=== PATIENT | female | born 1960 | race Caucasian/White ===

== ENCOUNTER 2016-11-18 21:38 | Emergency (ER) | payer MEDICARE ==
[~2016-11-18] VITALS: Ht 160 cm; Wt 97.1 kg
[~2016-11-18 21:38] MED LIST: ALBU8.5H6 INH; AMLO10TA4 PO; ATEN50TA PO; CALC500T50 PO; CHOL2000 PO; CYCL10TA2 PO; FERR325T72 PO; GLIP10TA13 PO; HYDR50TA6 PO; LEVO500T38 PO; LORA0.5T96 PO; MELO-156 PO; METF500T4 PO; NAPR500T8 PO; OMEG300C PO; PREG50CA PO; SERT100T PO; SERT100T8 PO
[2016-11-18 21:45] VITALS: BP 160/109
[2016-11-18] MEDS ORDERED: DICL75TA PO (23:04)
--- NOTE | 2016-11-18 23:05 | PHYS DOC ---
Past Medical History Past Medical History: Anxiety, Bronchitis, Diabetes-Type II, High Cholesterol, Hypertension Past Surgical History: Other Additional Past Surgical Histo: Shoulder Alcohol Use: None Drug Use: None Adult General Chief Complaint Chief Complaint: HAND PROBLEM HPI HPI Patient is a 56 year old female with a history of high cholesterol, hypertension, diabetes type 2, who presents today with mild left hand pain and swelling that began yesterday after she fell down. Review of Systems Review of Systems Constitutional: Denies fever or chills [] Eyes: Denies change in visual acuity, redness, or eye pain [] Musculoskeletal: Left hand pain and swelling Integument: Denies rash or skin lesions [] Neurologic: Denies headache, focal weakness or sensory changes [] Endocrine: Denies polyuria or polydipsia [] Allergies Allergies Allergies Coded Allergies Type Severity Reaction Last Updated Verified No Known Drug Allergies 08/12/14 No Physical Exam Physical Exam Constitutional: Well developed, well nourished, no acute distress, non-toxic appearance. [] HENT: Normocephalic, atraumatic, bilateral external ears normal, oropharynx moist, no oral exudates, nose normal. [] Skin: See extremity Back: No tenderness, no CVA tenderness. [] Extremities: Left hand with mild amount of soft tissue swelling on the knuckles of the index finger and middle finger. Tenderness on palpation of the left hand index finger and middle finger knuckles. Full range of motion to the left hand and fingers. Adequate medial radial and ulnar sensation to the left hand. +2 left radial pulse. Cap refill less than 2 seconds and left upper extremity. Sensation intact left upper extremity. Neurologic: Alert and oriented X 3, normal motor function, normal sensory function, no focal deficits noted. [] Psychologic: Affect normal, judgement normal, mood normal. [] Current Patient Data Vital Signs Vital Signs Date Time Temp Pulse Resp B/P Pulse Ox O2 Delivery O2 Flow Rate FiO2 11/18/16 21:45 97.5 95 18 96 Room Air 97.5 EKG EKG [] Radiology/Procedures Radiology/Procedures [] Course & Med Decision Making Course & Med Decision Making Pertinent Labs and Imaging studies reviewed. (See chart for details) Patient is in the ED with left hand pain after falling on it. Left hand x-rays interpreted by Dr. Gonzalez are negative for any acute findings. Patient was discharged with instructions to ice and elevate the extremity. Dave wrap applied to the left hand by the ED RN, neurovascular exam done by me is normal, cap refill less than 2 seconds. Follow-up with orthopedic doctor in a week. Discharged with diclofenac Dragon Disclaimer Dragon Disclaimer This electronic medical record was generated, in whole or in part, using a voice recognition dictation system. Departure Departure Impression: Primary Impression: Sprain of left hand Additional Impression: Fall from standing Disposition: 01 HOME, SELF-CARE Condition: STABLE Referrals: MEHRAN CALLAHAN NP (PCP) MARY PINEDA II, MD Follow-up with the orthopedic doctor provided in a week if pain continues Patient Instructions: Fall Prevention and Home Safety Additional Instructions: You were seen for left hand sprain after falling on it. Ice and elevate the extremity. Take the prescribed pain medicine as needed for pain. Keep the Dave wrap on as tolerated. Follow-up with orthopedic doctor in a week if pain continues. Scripts Diclofenac Sodium 75 Mg Tablet.dr1 Tab PO BID #20 TAB Ref 1 Prov:DANO DUNLAP APRN 11/18/16 Problem Qualifiers Primary Impression: Sprain of left hand Encounter type: initial encounter Qualified Code: S63.92XA - Sprain of unspecified part of left wrist and hand, initial encounter Additional Impression: Fall from standing Encounter type: initial encounter Qualified Code: W19.XXXA - Unspecified fall, initial encounter DANO DUNLAP APRN Nov 18, 2016 23:05
--- NOTE | 2016-11-19 08:12 | RAD ---
Left hand, 3 views, 11/18/2016: History: Pain, injury No acute fracture or dislocation is identified. There is soft tissue swelling over the dorsum of the hand in the distal metacarpal region. There is deformity of the distal radius and ulna compatible with old trauma. IMPRESSION: No acute bony abnormality is detected.
== END 2016-11-18 23:10 | disposition home or self-care (01) ==
LOC: ER 21:38
DX: S63.92XA Sprain of unspecified part of left wrist and hand, initial encounter (principal); E11.9 Type 2 diabetes mellitus without complications; E78.00 Pure hypercholesterolemia, unspecified; F41.9 Anxiety disorder, unspecified; I10 Essential (primary) hypertension; W18.39XA Other fall on same level, initial encounter; Y93.89 Activity, other specified; Y92.89 Other specified places as the place of occurrence of the external cause; Y99.8 Other external cause status
CPT/HCPCS: 73130; 99284

== ENCOUNTER 2016-12-06 09:13 | Emergency (ER) | payer MEDICARE ==
[~2016-12-06] VITALS: Ht 149.9 cm; Wt 98.9 kg
[~2016-12-06 09:13] MED LIST changes: +DICL75TA PO
[2016-12-06 09:25] VITALS: BP 156/85
[2016-12-06] MEDS ORDERED: TRIA15CR TP (09:33)
[2016-12-06] MEDS ORDERED: PRED-220 PO (09:33)
--- NOTE | 2016-12-06 10:24 | PHYS DOC ---
Past Medical History Past Medical History: Anxiety, Bronchitis, Diabetes-Type II, High Cholesterol, Hypertension Past Surgical History: Other Additional Past Surgical Histo: L Shoulder Alcohol Use: None Drug Use: None Adult General Chief Complaint Chief Complaint: SKIN RASH/ABSCESS HPI HPI Patient is a 56 year old female who presents with poison airam. Developed after doing yard work two days ago, diffuse on torso, chest, legs and face. Has not attempted any symptom controlling medication. Denies fever or sob. Review of Systems Review of Systems Constitutional: Denies fever or chills [] Eyes: Denies change in visual acuity, redness, or eye pain [] HENT: Denies nasal congestion or sore throat [] Respiratory: Denies cough or shortness of breath [] Cardiovascular: No additional information not addressed in HPI [] GI: Denies abdominal pain, nausea, vomiting, bloody stools or diarrhea [] : Denies dysuria or hematuria [] Musculoskeletal: Denies back pain or joint pain [] Integument: per hpi Neurologic: Denies headache, focal weakness or sensory changes [] Allergies Allergies Allergies Coded Allergies Type Severity Reaction Last Updated Verified No Known Drug Allergies 08/12/14 No Physical Exam Physical Exam Constitutional: Well developed, well nourished, no acute distress, non-toxic appearance. [] HENT: Normocephalic,diffuse confluent rash on face with bilateral eyelid swelling, no trismus, bilateral external ears normal, oropharynx moist, no oral exudates, nose normal. [] Eyes: PERRLA, EOMI, conjunctiva normal, no discharge. [] Neck: Normal range of motion, no tenderness, supple, no stridor. [] Cardiovascular:Heart rate regular with regular rhythm, no murmur [] Lungs & Thorax: Bilateral breath sounds clear to auscultation, no wheeze Skin: Warm, dry, linear and confluent rash on torso, legs and upper extremities , involves face Extremities: No tenderness, no cyanosis, no clubbing, ROM intact, no edema. [] Neurologic: Alert and oriented X 3, normal motor function, normal sensory function, no focal deficits noted. [] Psychologic: Affect normal, judgement normal, mood normal. [] Current Patient Data Vital Signs Vital Signs Date Time Temp Pulse Resp B/P (MAP) Pulse Ox O2 Delivery O2 Flow Rate FiO2 12/06/16 09:25 98.1 63 18 95 Room Air 98.1 EKG EKG [] Radiology/Procedures Radiology/Procedures [] Course & Med Decision Making Course & Med Decision Making Pertinent Labs and Imaging studies reviewed. (See chart for details) pt does have DM2, states her BS have been controlled. We'll treat with prolonged steroids due to the face involvement, recommended patient track her sugars diligently and follow up closely with primary care doctor if sugars search become elevated. 20 days of tapering steroids, triamcinolone for the torso and extremity rash, recommended 1% hydrocortisone cream to the face. Dragon Disclaimer Dragon Disclaimer This electronic medical record was generated, in whole or in part, using a voice recognition dictation system. Departure Departure Impression: Primary Impression: Contact dermatitis Disposition: HOME, SELF-CARE Condition: STABLE Patient Instructions: Anali Jones, [id number] Additional Instructions: please schedule follow-up with your doctor to ensure your symptoms are well controlled. monitor your blood sugar while taking the steroids. Use 1% hydrocortisone cream for the face, use the prescription cream to remainder of body. return for any shortness of breath. Scripts Triamcinolone Acetonide (TRIAMCINOLONE ACETONIDE 0.5% CREAM) 15 Gm Cream..g. 1 EDWINA TP BID Y for RASH, #30 GM do not apply to face Prov: FERNANDO MARKHAM MD 12/06/16 Prednisone (PREDNISONE) 10 Mg Tablet 10 MG PO UD for PREDNISONE TAPER, #65 TAB 0 Refills Take 3 tablets by mouth twice a day for 5 days, then take 2 tablets by mouth twice a day for 5 days, then take 1 tablet by mouth twice a day for 5 days, then take 1 tablet by mouth daily x 5 days, then stop. Prov: FERNANDO MARKHAM MD 12/06/16 FERNANDO MARKHAM MD December 06, 2016 10:24
== END 2016-12-06 09:38 | disposition home or self-care (01) ==
LOC: ER 09:13
DX: L25.9 Unspecified contact dermatitis, unspecified cause (principal); F41.9 Anxiety disorder, unspecified; E11.9 Type 2 diabetes mellitus without complications; E78.00 Pure hypercholesterolemia, unspecified; I10 Essential (primary) hypertension
CPT/HCPCS: 99283

== ENCOUNTER 2017-11-15 10:09 | Emergency (ER) | payer MEDICARE | END 2017-11-15 12:45 | disposition home or self-care (01) | LOC: ER 10:09 | DX: S60.051A Contusion of right little finger without damage to nail, initial encounter (principal); E11.9 Type 2 diabetes mellitus without complications; E78.00 Pure hypercholesterolemia, unspecified; W50.1XXA Accidental kick by another person, initial encounter; Y93.89 Activity, other specified; Y99.8 Other external cause status; Y92.89 Other specified places as the place of occurrence of the external cause | CPT/HCPCS: 29130; 73130; 99284-25 ==

== ENCOUNTER 2018-10-31 21:13 | Emergency (ER) | payer MEDICARE ==
[~2018-10-31] VITALS: Ht 149.9 cm; Wt 97.5 kg
[~2018-10-31 21:13] MED LIST changes: -CALC500T50 PO; +CALC500T54 PO; -LEVO500T38 PO; +LEVO500T59 PO; -MELO-156 PO; +MELO7.5T29 PO; +METF500T16 PO; -METF500T4 PO; +PRED-220 PO; +TRIA15CR TP
[2018-10-31] MEDS ORDERED: HYDROcodone/APAP 5/325MG 1 TAB TABLET PO ONE (21:45)
[2018-10-31] MEDS ORDERED: DIPHTH,PERTUSS(ACELL),TET TOX 0.5 ML DISP.SYRIN. VAX IM ONE (21:45)
[2018-10-31] MEDS ORDERED: CEPH-264 PO (21:49)
[2018-10-31] MEDS ORDERED: HYDR-3135 PO (21:49)
--- NOTE | 2018-10-31 21:50 | PHYS DOC ---
Past Medical History Past Medical History: Anxiety, Bronchitis, Diabetes-Type II, High Cholesterol, Hypertension Past Surgical History: Other Additional Past Surgical Histo: L Shoulder Alcohol Use: None Drug Use: None Adult General Chief Complaint Chief Complaint: FOOT INJURY PAIN HPI HPI Patient is a 58 year old female presents with right foot injury yesterday after stepping on a old nail. Patient with close puncture wound to medial aspect of mid foot with mild erythema swelling and inflammation surrounding the puncture site consistent with injury. Patient reports pain with palpation and ambulation. Patient has been weightbearing. Last known tetanus is unknown. Patient is not diabetic. No other acute symptoms or complaints. [] Review of Systems Review of Systems Review symptoms as per history of present illness. All other review symptoms are negative. All other systems were reviewed and found to be within normal limits, except as documented in this note. Current Medications Current Medications Current Medications Medications (Trade) Dose Ordered Sig/Rony Start Time Stop Time Status Last Admin Dose Admin Acetaminophen/ Hydrocodone Bitart (Lortab 5/325) 1 tab 1X ONCE 10/31/18 21:45 10/31/18 21:46 UNV Diphtheria/ Tetanus/Acell Pertussis (Boostrix) 0.5 ml ONCE ONCE 10/31/18 21:45 10/31/18 21:46 UNV Allergies Allergies Allergies Coded Allergies Type Severity Reaction Last Updated Verified No Known Drug Allergies 08/12/14 No Physical Exam Physical Exam Constitutional: Well developed, well nourished, no acute distress, non-toxic appearance. [] HENT: Normocephalic, atraumatic, bilateral external ears normal, oropharynx moist, no oral exudates, nose normal. [] Extremities: Right foot, closed puncture wound to the medial aspect of the foot with minimally erythema swelling and appropriate tenderness to the area. No drainage, weeping, fluctuance or cellulitis appreciated. No subcutaneous foreign body palpated.[] Neurologic: Alert and oriented X 3, normal motor function, normal sensory function, no focal deficits noted. [] Psychologic: Affect normal, judgement normal, mood normal. [] EKG EKG [] Radiology/Procedures Radiology/Procedures [Right foot x-ray: Pending] Course & Med Decision Making Course & Med Decision Making Pertinent Labs and Imaging studies reviewed. (See chart for details) [Puncture wound to right foot, no obvious cellulitis or bony injury. Will obtain x-ray to rule out fracture, retained foreign body, treat supportively and up-to-date tetanus status.] Brenton Disclaimer Dragon Disclaimer This electronic medical record was generated, in whole or in part, using a voice recognition dictation system. Departure Departure Impression: Primary Impression: Puncture wound of foot, right Disposition: HOME, SELF-CARE Condition: GOOD Referrals: UNKNOWN PCP NAME (PCP) Patient Instructions: Puncture Wound, [id number] Additional Instructions: Please take ibuprofen for pain, and tramadol as needed for additional relief. Use crutches and complete full course of antibiotics. Follow up with your PCP in 3-5 days for re-evaluation. Return to the ED if new or worsening symptoms. Scripts Cephalexin (KEFLEX) 500 Mg Capsule 1 CAP PO TID, #21 CAP Prov: ELIZABET BILLINGS DO 10/31/18 Hydrocodone/Apap 10-325 (NORCO 10-325 TABLET) 1 Each Tablet 1 TAB PO Q8HRS PRN for PAIN MDD 6, #10 TAB 0 Refills Prov: ELIZABET BILLINGS DO 10/31/18 ELIZABET BILLINGS DO Oct 31, 2018 21:50
[2018-10-31 22:13] VITALS: BP 137/72
--- NOTE | 2018-10-31 23:10 | RAD ---
Indication:STEPPED ON A NAIL. THERE IS RED, inflamed, PUFFY, SWOLLEN AREA ON MEDIAL ARCH OF FOOT WHERE SHE STEPPED ON THE DIRTY NAIL. TECHNIQUE: 3 views of the right foot COMPARISON:None FINDINGS: No metallic foreign body. No acute fracture or dislocation. Soft tissue swelling is seen along the medial aspect of the foot. No soft tissue emphysema. Small plantar calcaneal spur. IMPRESSION: No radiopaque foreign body. Soft tissue swelling of the medial aspect of the foot. Correlate for cellulitis. No radiographic evidence of osteomyelitis. Electronically signed by: Randal Green DO (10/31/2018 11:07 PM) [facility]
== END 2018-10-31 22:14 | disposition home or self-care (01) ==
LOC: ER 21:13
DX: S91.331A Puncture wound without foreign body, right foot, initial encounter (principal); E78.00 Pure hypercholesterolemia, unspecified; I10 Essential (primary) hypertension; E11.9 Type 2 diabetes mellitus without complications; W22.8XXA Striking against or struck by other objects, initial encounter; Y93.89 Activity, other specified; Y92.89 Other specified places as the place of occurrence of the external cause; Y99.8 Other external cause status
CPT/HCPCS: 73630; 90471; 90715; 99283